=== PATIENT | male | born 1955 | race American Indian/Alaskan Native ===

== ENCOUNTER 2022-01-20 09:33 | Emergency (ER) | payer BC ==
[2022-01-20 11:17] LABS: Hematocrit 37.9 % (35.5-45.6); Hemoglobin 12.6 gm/dl (11.8-15.2); Mean Corpuscular HGB Conc 33 % (32-34); Mean Corpuscular Volume 90 fl (84-94); Platelet Count 195 K/mm3 (140-440); Red Blood Count 4.21 M/mm3 (3.65-5.03); Red Cell Distribution Width 14.2 % (13.2-15.2)
[2022-01-20 11:28] LABS: Alanine Aminotransferase 14 units/L (7-56); Albumin 3.6 g/dL (3.9-5); BUN/Creatinine Ratio 24; Blood Urea Nitrogen 29 mg/dL (9-20); Calcium 9.4 mg/dL (8.4-10.2); Hemolysis Index 5
--- NOTE | 2022-01-20 12:09 | Emergency Department Report ---
ED General Adult HPI - General Chief complaint: GI Bleed Stated complaint: DARK STOOL STOMACH Time Seen by Provider: 01/20/22 11:55 Source: patient Mode of arrival: Ambulatory Limitations: No Limitations - Related Data Previous Rx's Medication Instructions Recorded Last Taken Type Meclizine [Antivert] 12.5 mg PO BID PRN #60 tablet 06/13/14 Unknown Rx Acetaminophen/Codeine 1 - 2 tab PO Q6H PRN #25 tab 10/26/14 Unknown Rx [Acetaminophen-Codeine #3 TAB] Prednisone [Prednisone 10 mg 10 mg PO .TAPER #1 tab.ds.pk 10/26/14 Unknown Rx (6-Day Pack, 21 Tabs)] Pantoprazole [Protonix TAB] 40 mg PO BID #60 tablet 01/20/22 Unknown Rx Allergies Allergy/AdvReac Type Severity Reaction Status Date / Time No Known Allergies Allergy Unverified 06/13/14 15:06 ED Review of Systems ROS: Stated complaint: DARK STOOL STOMACH Other details as noted in HPI ED Past Medical Hx - Past Medical History Hx Hypertension: Yes Hx GERD: Yes Additional medical history: ulcer, gout - Social History Smoking Status: Never Smoker Substance Use Type: None, Alcohol - Medications Home Medications: Home Medications Medication Instructions Recorded Confirmed Last Taken Type Meclizine [Antivert] 12.5 mg PO BID PRN #60 tablet 06/13/14 Unknown Rx Acetaminophen/Codeine 1 - 2 tab PO Q6H PRN #25 tab 10/26/14 Unknown Rx [Acetaminophen-Codeine #3 TAB] Prednisone [Prednisone 10 mg 10 mg PO .TAPER #1 tab.ds.pk 10/26/14 Unknown Rx (6-Day Pack, 21 Tabs)] Pantoprazole [Protonix TAB] 40 mg PO BID #60 tablet 01/20/22 Unknown Rx ED Physical Exam - General Limitations: No Limitations ED Medical Decision Making - Lab Data Result diagrams: 01/20/22 10:56 01/20/22 10:51 Critical care attestation.: If time is entered above; I have spent that time in minutes in the direct care of this critically ill patient, excluding procedure time. ED Disposition Clinical Impression: Dark stools Disposition: 01 HOME / SELF CARE / HOMELESS Is pt being admited?: No Does the pt Need Aspirin: No Condition: Stable Instructions: Gastrointestinal Bleeding, [id number] Additional Instructions: Follow-up with primary care provider. Return to the emergency department immediately if you have continued black stools or if you develop dizziness or weakness. Prescriptions: Pantoprazole [Protonix TAB] 40 mg PO BID #60 tablet Referrals: JUAN RAYMUNDO MD [Staff Physician] - 3-5 Days Forms: Accompanied Note Time of Disposition: 12:09
== END 2022-01-20 12:25 | disposition home or self-care (01) ==
LOC: ED 09:33
DX: K92.1 Melena (principal); I10 Essential (primary) hypertension; K21.9 Gastro-esophageal reflux disease without esophagitis
CPT/HCPCS: 36415; 80053; 85027; 99283